=== PATIENT | female | born 1995 | race Caucasian/White ===

== ENCOUNTER 2016-11-03 14:24 | Emergency (ER) | payer SELFPAY ==
[~2016-11-03] VITALS: Ht 152.4 cm; Wt 55.0 kg
[2016-11-03 15:00] VITALS: BP 113/86
== END 2016-11-04 01:45 | disposition left against medical advice (07) ==
LOC: ER 11-04 01:31
DX: R10.9 Unspecified abdominal pain (principal); Z53.21 Procedure and treatment not carried out due to patient leaving prior to being seen by health care provider